=== PATIENT | female | born 2000 | race Two or more races ===

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

== ENCOUNTER 2023-02-16 19:26 | Emergency (ER) | payer MEDICAID ==
[~2023-02-16] VITALS: Ht 160 cm; Wt 60.0 kg
[2023-02-16 19:38] VITALS: O2SAT 98
[2023-02-16] MEDS ORDERED: IBUPROFEN 600MG TABLET PO STA (21:18)
[2023-02-16] MEDS ORDERED: ACETAMINOPHEN 325MG TABLET PO STA (21:18)
[2023-02-16 21:41] LABS: BASOPHILS % 0.3 % (0.0-2.0); DIFFERENTIAL COMMENT 0; HEMATOCRIT. 35.5 % (36.0-48.0); HEMOGLOBIN. 11.2 g/dL (12.0-16.0); LYMPHOCYTES % 26.6 % (20.0-50.0); MEAN CORPUSCULAR HEMOGLOBIN 22.6 pg (28.0-32.0); MEAN CORPUSCULAR HGB CONC 31.5 g/dL (31.0-37.0); MEAN CORPUSCULAR VOLUME 71.8 fL (81.0-99.0); MEAN PLATELET VOLUME 9.4 fl (7.4-10.4); MONOCYTES % 13.2 % (2.0-8.0); NEUTROPHILS % 59.9 % (40.0-76.0); PLATELET 220 x1000/uL (130-400); RED BLOOD CELL COUNT 4.95 mill/uL (4.2-5.4); RED CELL DISTRIBUTION WIDTH 18.3 % (11.6-14.6); WHITE BLOOD COUNT 6.1 x1000/uL (4.5-11.0)
[2023-02-16 21:49] LABS: HCG SCREEN NEGATIVE
[2023-02-16 21:56] LABS: ALANINE AMINOTRANSFERASE 31 IU/L (10-49); ALBUMIN 4.6 g/dL (3.2-4.8); ASPARTATE AMINOTRANSFERASE 31 IU/L (<34); BILIRUBIN TOTAL 0.7 mg/dL (0.1-1.0); CALCIUM 9.6 mg/dL (8.7-10.4); CARBON DIOXIDE 26 mEq/L (21-32); CHLORIDE 103 mEq/L (98-107); CREATININE 0.5 mg/dL (0.6-1.0); GLUCOSE 93 mg/dL (70-105); POTASSIUM 3.5 mEq/L (3.5-5.1); PROTEIN TOTAL 7.3 g/dL (6.0-8.3); SODIUM 138 mEq/L (136-145); TROPONIN I HIGH SENSITIVITY 7 ng/L (3.0-34); UREA NITROGEN BLOOD 6 mg/dL (9-23)
[2023-02-16 22:14] VITALS: BP 113/68
[2023-02-16 22:50] LABS: CLARITY URINE CLEAR (CLEAR); COLOR URINE YELLOW (YELLOW); GLUCOSE URINE NEGATIVE (NEGATIVE); KETONES URINE NEGATIVE (NEGATIVE); LEUKOCYTE ESTERASE URINE NEGATIVE (NEGATIVE); NITRITE URINE NEGATIVE (NEGATIVE); OCCULT BLOOD URINE NEGATIVE (NEGATIVE); PH URINE 6.5 (4.5-8.0); PROTEIN URINE NEGATIVE (NEGATIVE); SPECIFIC GRAVITY URINE 1.005 (1.005-1.030); UROBILINOGEN URINE 0.2 E.U./dL (0.2-1.0)
[2023-02-17] MEDS ORDERED: IBUP-2029 MT (00:43)
[2023-02-17 01:17] VITALS: PULSE 98; RESP 20; TEMP 98.7
== END 2023-02-17 01:19 | disposition home or self-care (01) ==
LOC: ER 19:26
DX: M46.1 Sacroiliitis, not elsewhere classified (principal); E03.9 Hypothyroidism, unspecified
CPT/HCPCS: 36415; 71045; 74176; 80053; 81003; 81025; 84484; 84703; 85025; 99284

== ENCOUNTER 2023-10-08 00:50 | Emergency (ER) | payer MEDICAID ==
[~2023-10-08] VITALS: Ht 160 cm; Wt 56.8 kg
[~2023-10-08 00:50] MED LIST: IBUP-2029 MT
[2023-10-08] MEDS: ACETAMINOPHEN 325MG TABLET PO STA (01:15)
[2023-10-08 01:39] LABS: BASOPHILS % 0.2 % (0.0-2.0); DIFFERENTIAL COMMENT 0; EOSINOPHILS % 0.5 % (0.0-5.0); HEMATOCRIT. 26.2 % (36.0-48.0); HEMOGLOBIN. 8.2 g/dL (12.0-16.0); LYMPHOCYTES % 25.8 % (20.0-50.0); MEAN CORPUSCULAR HEMOGLOBIN 22.1 pg (28.0-32.0); MEAN CORPUSCULAR HGB CONC 31.3 g/dL (31.0-37.0); MEAN CORPUSCULAR VOLUME 70.6 fL (81.0-99.0); MEAN PLATELET VOLUME 8.8 fl (7.4-10.4); MONOCYTES % 6.1 % (2.0-8.0); NEUTROPHILS % 67.4 % (40.0-76.0); PLATELET 239 x1000/uL (130-400); RED BLOOD CELL COUNT 3.71 mill/uL (4.2-5.4); RED CELL DISTRIBUTION WIDTH 16.5 % (11.6-14.6); WHITE BLOOD COUNT 13.5 x1000/uL (4.5-11.0)
[2023-10-08 01:43] LABS: CHLORIDE 108 mEq/L (98-107); POTASSIUM 3.4 mEq/L (3.5-5.1); SODIUM 136 mEq/L (136-145)
[2023-10-08 01:44] LABS: CALCIUM 8.3 mg/dL (8.7-10.4); CARBON DIOXIDE 22 mEq/L (21-32)
[2023-10-08 01:49] LABS: CREATININE 0.4 mg/dL (0.6-1.0); GLUCOSE 75 mg/dL (70-105); UREA NITROGEN BLOOD 6 mg/dL (9-23)
[2023-10-08 01:51] LABS: ALANINE AMINOTRANSFERASE 25 IU/L (10-49); ALBUMIN 3.9 g/dL (3.2-4.8); ASPARTATE AMINOTRANSFERASE 27 IU/L (<34); BILIRUBIN DIRECT 0.2 mg/dL (<=3.0); BILIRUBIN TOTAL 0.6 mg/dL (0.1-1.0); PROTEIN TOTAL 6.6 g/dL (6.0-8.3)
[2023-10-08 02:26] LABS: CLARITY URINE CLOUDY (CLEAR); COLOR URINE YELLOW (YELLOW); GLUCOSE URINE NEGATIVE (NEGATIVE); KETONES URINE NEGATIVE (NEGATIVE); LEUKOCYTE ESTERASE URINE 3+ (NEGATIVE); NITRITE URINE NEGATIVE (NEGATIVE); OCCULT BLOOD URINE NEGATIVE (NEGATIVE); PH URINE 6.5 (4.5-8.0); PROTEIN URINE NEGATIVE (NEGATIVE); SPECIFIC GRAVITY URINE 1.016 (1.005-1.030)
[2023-10-08 03:05] VITALS: TEMP 98.2
[2023-10-08 03:09] LABS: BACTERIA URINE 1+; SQUAMOUS EPITHELIAL CELL URINE 3+ /lpf (RARE/1+)
[2023-10-08] MEDS ORDERED: NITR-87 MT (04:16)
[2023-10-08 04:26] VITALS: BP 96/57; PULSE 99; RESP 18
== END 2023-10-08 04:30 | disposition home or self-care (01) ==
LOC: ER 00:50
DX: O23.42 Unspecified infection of urinary tract in pregnancy, second trimester (principal); N39.0 Urinary tract infection, site not specified; Z3A.23 23 weeks gestation of pregnancy; O26.892 Other specified pregnancy related conditions, second trimester; R51.9 Headache, unspecified
CPT/HCPCS: 36415; 76805; 80048; 80076; 81003; 85025; 93970; 99285

== ENCOUNTER 2025-01-10 16:22 | Emergency (ER) | payer MEDICAID ==
[~2025-01-10] VITALS: Ht 160 cm; Wt 60.0 kg
[~2025-01-10 16:22] MED LIST changes: +IBUP-1455 MT; -IBUP-2029 MT; +NITR-87 MT
[2025-01-10 16:38] VITALS: TEMP 36.9; O2SAT 100
[2025-01-10] MEDS ORDERED: IBUP-2028 MT (18:07)
[2025-01-10] MEDS ORDERED: TOPUD MT (18:07)
[2025-01-10] MEDS: IBUPROFEN 400MG TABLET PO ONE (18:15)
[2025-01-10 18:34] VITALS: BP 122/79; PULSE 87; RESP 16; O2SAT 100
== END 2025-01-10 18:30 | disposition home or self-care (01) ==
LOC: ER 16:22
DX: S92.411A Displaced fracture of proximal phalanx of right great toe, initial encounter for closed fracture (principal); S90.31XA Contusion of right foot, initial encounter; W22.8XXA Striking against or struck by other objects, initial encounter; Y93.89 Activity, other specified; Y92.89 Other specified places as the place of occurrence of the external cause; Y99.8 Other external cause status
CPT/HCPCS: 73630; 99283